=== PATIENT | male | born 1955 | race Caucasian/White ===

== ENCOUNTER → 2024-03-07 | Outpatient (CLI) | payer MEDICARE ==
--- NOTE | 2024-03-13 06:11 | MR ---
EXAMINATION TYPE: MR knee LT wo con DATE OF EXAM: 03/07/2024 COMPARISON: NONE HISTORY: Lt knee pain and swelling for 3 months, post hyperextension injury. Acute medial meniscal te ar per order. TECHNIQUE: Multiplanar, multisequence images of the knee is performed without IV contrast. FINDINGS: MEDIAL MENISCUS: Medial bulging medial meniscus on the coronal images. Irregular signal posterior hor n central aspect extends to articular surface. LATERAL MENISCUS: Anterior and posterior horns are intact without tear. CRUCIATE LIGAMENTS: The anterior and posterior cruciate ligaments are intact and unremarkable. COLLATERAL LIGAMENTS: The medial collateral ligament and lateral collateral ligament complex are inta ct and unremarkable. EXTENSOR MECHANISM: Visualized quadriceps and patellar tendons are intact. EFFUSION: Moderate to large size suprapatellar joint effusion. POPLITEAL CYST: Tiny size popliteal/carter cyst. TRICOMPARTMENT SPACES: Moderate to severe tricompartment joint space loss and spurring most prominent involving the patellofemoral compartment. 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 Tricompartment cartilaginous loss with additional prominent cartilaginous loss medial ti biofemoral compartment. BONE MARROW SIGNAL: Heterogeneous areas of increased T2 signal medial tibial femoral compartment at s ites of most prominent joint space narrowing and cartilaginous loss. Similar findings posterior aspec t of the patella. OTHER: Moderate prepatellar and superficial infrapatellar cutaneous edema. IMPRESSION: 1. Full-thickness tear posterior horn of medial meniscus extending towards the central body. 2. 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 3. Moderate to large-size suprapatellar joint effusion.
== END | disposition home or self-care (01) ==
LOC: RADMRIMAIN 16:22
PROVIDERS: ATTEND Orthopaedic Surgery
DX: S83.242A Other tear of medial meniscus, current injury, left knee, initial encounter (principal)